=== PATIENT | female | born 1995 | race Caucasian/White ===

== ENCOUNTER 2022-09-04 14:42 | Emergency (ER) | payer OTHER, MEDICAID ==
[~2022-09-04] VITALS: Ht 149.9 cm; Wt 59.0 kg
[~2022-09-04 14:42] MED LIST: CLON0.5T4 PO
[2022-09-04 15:00] VITALS: BP_SYST 105
--- NOTE | 2022-09-04 15:00 | NUR ---
Patient triaged and placed in waiting room. VSS and patient appears in no acute distress at this time. Accompanied by , awaiting available bed, and MD notified of need for MSE.
--- NOTE | 2022-09-04 15:15 | NUR ---
ER DR. BONE EXAMINING PT IN TRIAGE
--- NOTE | 2022-09-04 15:20 | NUR ---
PT BIB FROM HOME C/O LEFT SIDED CP SINCE 1350 WHILE AT WORK. PT STATES SHE HAS A HX OF POTS AND ANXIETY. DENIES TAKING ANY CARDIAC MEDS. PT IS AMBULATORY, AAOX4, VSS
[2022-09-04] MEDS ORDERED: IBUPROFEN 800 MG TABLET PO ONE (15:30)
[2022-09-04] MEDS ORDERED: LORazepam 1 MG TABLET PO ONE (16:30)
[2022-09-04 18:47] VITALS: BP_SYST 105
--- NOTE | 2022-09-04 18:50 | NUR ---
Patient given written and verbal discharge instructions and verbalizes understanding. ER MD discussed with patient the results and treatment provided. Patient in stable condition. ID arm band removed. NO Rx given. Patient educated on pain management and to follow up with PMD. Pain Scale 0/10. Opportunity for questions provided and answered. Medication side effect fact sheet provided.
== END 2022-09-04 18:47 | disposition home or self-care (01) ==
LOC: SED 14:42
DX: R07.89 Other chest pain (principal); F41.1 Generalized anxiety disorder; Z88.2 Allergy status to sulfonamides; Z79.899 Other long term (current) drug therapy
CPT/HCPCS: 93005; 99283